=== PATIENT | male | born 1970 | race Two or more races ===

== ENCOUNTER 2021-05-31 16:14 | Emergency (ER) | payer OTHER ==
--- NOTE | 2021-05-31 17:36 | CR ---
[id number] RAD/RAD Ribs Right W PA Chest EXAM: RAD Ribs Right W PA Chest INDICATION: TRAUMA TO RIGHT RIB ANTERIOR. COMPARISON: May 31, 2021. DISCUSSION: Cardiomediastinal silhouette is stable in size and contour. No infiltrate, effusion, pneumothorax, or edema. Old right-sided rib fractures. IMPRESSION: No acute right-sided rib fractures are identified. Shahram Byers DO 05/31/21 1734 Thank you for allowing us to participate in the care of your patient.
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
== END 2021-05-31 17:58 | disposition home or self-care (01) ==
LOC: KA.ED 16:18
DX: S20.211A Contusion of right front wall of thorax, initial encounter (principal); V69.9XXA Occupant (driver) (passenger) of heavy transport vehicle injured in unspecified traffic accident, initial encounter
CPT/HCPCS: 71101-RT; 99283; 99284-25

== ENCOUNTER 2024-05-26 15:11 | Emergency (ER) | payer SELFPAY ==
[2024-05-26] MEDS: fentaNYL 100 MCG/2 ML SDV IVPUSH ONE (15:41)
[2024-05-26 15:48] LABS: BASOPHILS ABSOLUTE AUTO 0.02 10^3/uL (0.00-0.10); BASOPHILS PERCENT AUTO 0.4 % (0.0-1.0); EOSINOPHILS ABSOLUTE AUTO 0.23 10^3/uL (0.10-0.30); EOSINOPHILS PERCENT AUTO 4.1 % (1.0-3.0); IMMATURE GRAN ABSOLUTE AUTO 0.02 10^3/uL (0.00-0.50); IMMATURE GRAN PERCENT AUTO 0.4 % (0.0-5.0); MEAN CORPUSCULAR HEMOGLOBIN 33.3 pg (27.0-31.0); MEAN CORPUSCULAR HGB CONC 34.1 g/dL (32.0-36.0); MEAN CORPUSCULAR VOLUME 97.8 fL (82.0-92.0); MEAN PLATELET VOLUME 10.1 fL (7.4-10.4); MONOCYTES ABSOLUTE AUTO 0.72 10^3/uL (0.10-0.80); MONOCYTES PERCENT AUTO 12.8 % (2.0-8.0); NEUTROPHILS ABSOLUTE AUTO 2.83 10^3/uL (2.50-7.00); NEUTROPHILS PERCENT AUTO 50.3 % (50.0-70.0); PLATELET COUNT,PLT 155 10^3/uL (150-400); RED CELL DISTRIBUTION WIDTH 11.6 % (11.5-14.5); WHITE BLOOD CELL COUNT,WBC 5.62 10^3/uL (5.00-10.00)
[2024-05-26 15:59] LABS: ALANINE AMINOTRANSFERASE,ALT 62 U/L (14-63); ALKALINE PHOSPHATASE 134 U/L (46-116); ANION GAP 14.8 mmol/L (5-15); ASPARTATE AMNIOTRANSFERASE,AST 32 U/L (15-37); BILIRUBIN TOTAL 0.4 mg/dL (0.2-1.0); BLOOD UREA NITROGEN,BUN 17 mg/dL (7-18); CALCIUM 8.5 mg/dL (8.7-10.3); CARBON DIOXIDE,CO2 24.5 mmol/L (21.0-32.0); CHLORIDE,CL 102 mmol/L (98-107); CREATININE 1.07 mg/dL (0.51-1.17); EST CRCL DRUG DOSING (CG) 88.64 mL/min; ESTIMATED GFR 84 mL/min (>=60); GLUCOSE RANDOM 107 mg/dL (70-140); POTASSIUM,K 4.3 mmol/L (3.5-5.1); PROTEIN TOTAL,TP 7.9 g/dL (6.4-8.2); SODIUM,NA 137 mmol/L (136-145)
[2024-05-26 16:00] LABS: C-REACTIVE PROTEIN < 0.50 mg/dL (0.00-0.50)
[2024-05-26] MEDS: Iopamidol 755 Mg/ML 100 ML Bottle IV ONE (16:28)
[2024-05-26] MEDS: Sodium Chloride 0.9% 50 ML IV SCH (16:28)
== END 2024-05-26 18:48 | disposition home or self-care (01) ==
LOC: KA.ED 15:11
DX: K42.9 Umbilical hernia without obstruction or gangrene (principal); Z79.899 Other long term (current) drug therapy
CPT/HCPCS: 36415; 74177; 80053; 83605; 85025; 86140; 96374; 99284-25; J3010; J3490; Q9967